=== PATIENT | male | born 1950 | race Caucasian/White ===

== ENCOUNTER 2021-12-30 07:55 | Inpatient (IN) ==
[2021-12-22 12:34] LABS: Basophils % 0.6 % (0.0-0.8); Eosinophils # 0.1 10*3/uL (0.0-0.87); Hematocrit 39.6 VOL% (42.0-52.0); Hemoglobin 13.4 GM/DL (14.0-18.0); Immature Granulocytes % 0.2 %; Immature Granulocytes Absolute 0.01 #; Lymphocytes # 0.9 10*3/uL (1.4-4.0); Lymphocytes % 17.8 % (21.2-54.2); Mean Corpuscular HGB Conc 33.8 GM/DL (32-36); Mean Corpuscular Volume 89.4 FL (87-102); Mean Platelet Volume 10.5 FL (9.6-12.0); Monocytes # 0.5 10*3/uL (0.11-0.8); Monocytes % 10.4 % (1.7-12.7); Platelet Count 269 T/CUMM (130-400); Red Blood Count 4.43 MC/CUMM (3.8-5.5); Red Cell Distribution Width 12.9 % (9.3-17.3); White Blood Count 4.9 T/CUMM (4-12)
[2021-12-22 12:47] LABS: Albumin 3.8 G/DL (3.4-5.0); Bilirubin,Total 0.6 MG/DL (0.20-1.00); Calcium 9.1 MG/DL (8.5-10.1); Osmolality,Calculated 278.4 MOS/KG (273-304); Potassium 4.2 MMOL/L (3.5-5.1); Total Protein 6.7 G/DL (6.4-8.2)
[2021-12-22 12:48] LABS: INR 0.9; PT Patient Result 10.3 SECS (10.1-12.1)
[~2021-12-30 07:55] MED LIST: cefTRIAXone 1,000 MG in SODIUM CHLORIDE 0.9% 100 ML IV ONE
[2021-12-30] MEDS ORDERED: FAMOTIDINE 20 MG TABLET PO ONE (08:28)
[2021-12-30] MEDS ORDERED: DIAZEPAM 5 MG TABLET PO ONE (08:28)
[2021-12-30] MEDS ORDERED: cefTRIAXone 1,000 MG VIAL ONE (09:03)
[2021-12-30] MEDS: LACTATED RINGERS 1,000 ML IV SCH ×2 (09:10→13:55)
[2021-12-30] MEDS ORDERED: ONDANSETRON 4 MG/2 ML VIAL ONE (15:49)
[2021-12-30] MEDS ORDERED: MIDAZOLAM 2 MG/2 ML VIAL ONE (15:49)
[2021-12-30] MEDS ORDERED: propofoL 200 MG/20 ML VIAL IV ONE (15:49)
[2021-12-30] MEDS ORDERED: fentaNYL 100 MCG/2 ML VIAL ONE (15:49)
[2021-12-30] MEDS ORDERED: LIDOCAINE 2% 5 ML VIAL ONE (15:49)
[2021-12-30] MEDS ORDERED: SEVOFLURANE 1 UNIT/15 MINUTE INH ONE (15:49)
[2021-12-30] MEDS ORDERED: ROCURONIUM 50 MG/5 ML VIAL IV ONE (15:49)
[2021-12-30] MEDS ORDERED: ROPIVACAINE 0.5% 30 ML VIAL ONE (15:52)
[2021-12-30] MEDS ORDERED: ePHEDrine 50 MG/ML VIAL ONE (16:36)
[2021-12-30] MEDS ORDERED: SUGAMMADEX 200 MG/2 ML VIAL IV ONE (17:03)
[2021-12-30] MEDS ORDERED: SIMETHICONE CHEW 125 MG TABLET PO PRN (17:12)
[2021-12-30] MEDS ORDERED: ONDANSETRON 4 MG/2 ML VIAL IV PRN (17:12)
[2021-12-30] MEDS ORDERED: diphenhydrAMINE 50 MG/1 ML VIAL IV PRN (17:12)
[2021-12-30] MEDS ORDERED: PROMETHAZINE 25 MG/1 ML VIAL IM PRN (17:12)
[2021-12-30 17:53] LABS: Basophils # 0.1 10*3/uL (0.0-0.2); Basophils % 0.8 % (0.0-0.8); Eosinophils # 0.2 10*3/uL (0.0-0.87); Eosinophils % 3.7 % (0.00-10.9); Hematocrit 38.7 VOL% (42.0-52.0); Hemoglobin 13.2 GM/DL (14.0-18.0); Immature Granulocytes % 0.2 %; Immature Granulocytes Absolute 0.01 #; Lymphocytes # 1.1 10*3/uL (1.4-4.0); Lymphocytes % 16.6 % (21.2-54.2); Mean Corpuscular HGB Conc 34.1 GM/DL (32-36); Mean Corpuscular Volume 92.1 FL (87-102); Mean Platelet Volume 10.1 FL (9.6-12.0); Monocytes # 0.7 10*3/uL (0.11-0.8); Monocytes % 10.2 % (1.7-12.7); Neutrophils % 68.5 % (38.7-73.9); Platelet Count 197 T/CUMM (130-400); Red Cell Distribution Width 13.1 % (9.3-17.3); White Blood Count 6.5 T/CUMM (4-12)
[2021-12-30] MEDS ORDERED: hydrALAZINE 20 MG/1 ML VIAL IV ONE (18:00)
[2021-12-30] MEDS ORDERED: MEPERIDINE 25 MG/1 ML VIAL IV PRN (18:01)
[2021-12-30] MEDS ORDERED: hydrALAZINE 20 MG/1 ML VIAL ONE (18:03)
[2021-12-30 18:06] LABS: Calcium 8.7 MG/DL (8.5-10.1); Osmolality,Calculated 280.3 MOS/KG (273-304); Potassium 3.9 MMOL/L (3.5-5.1)
[2021-12-30] MEDS: ACETAMINOPHEN 325 MG TABLET PO SCH ×2 (19:15→23:57)
[2021-12-30] MEDS: SODIUM CHLORIDE 0.9% 1,000 ML IV SCH (19:16)
[2021-12-30] MEDS: DOCUSATE SODIUM 100 MG CAPSULE PO SCH (20:29)
[2021-12-30] MEDS: TAMSULOSIN 0.4 MG CAPSULE PO SCH (20:30)
[2021-12-30] MEDS: HYDROmorphone 1 MG/1 ML SYRINGE IV PRN (22:44)
[2021-12-31] MEDS: SODIUM CHLORIDE 0.9% 1,000 ML IV SCH ×4 (01:23→17:37)
[2021-12-31] MEDS: ACETAMINOPHEN 325 MG TABLET PO SCH ×3 (05:17→17:26)
[2021-12-31 05:25] LABS: Basophils % 0.6 % (0.0-0.8); Eosinophils # 0.1 10*3/uL (0.0-0.87); Eosinophils % 1.7 % (0.00-10.9); Hematocrit 36.9 VOL% (42.0-52.0); Hemoglobin 12.2 GM/DL (14.0-18.0); Immature Granulocytes % 0.3 %; Immature Granulocytes Absolute 0.02 #; Lymphocytes % 13.9 % (21.2-54.2); Mean Corpuscular HGB Conc 33.1 GM/DL (32-36); Mean Corpuscular Volume 91.1 FL (87-102); Mean Platelet Volume 9.8 FL (9.6-12.0); Monocytes # 0.8 10*3/uL (0.11-0.8); Neutrophils % 72.5 % (38.7-73.9); Platelet Count 258 T/CUMM (130-400); Red Blood Count 4.05 MC/CUMM (3.8-5.5); Red Cell Distribution Width 13.2 % (9.3-17.3); White Blood Count 7.3 T/CUMM (4-12)
[2021-12-31 05:48] LABS: Calcium 8.9 MG/DL (8.5-10.1); Osmolality,Calculated 280.3 MOS/KG (273-304); Potassium 3.7 MMOL/L (3.5-5.1)
[2021-12-31] MEDS: FINASTERIDE 5 MG TABLET PO SCH (08:51)
[2021-12-31] MEDS: TAMSULOSIN 0.4 MG CAPSULE PO SCH ×2 (08:51→20:28)
[2021-12-31] MEDS: DOCUSATE SODIUM 100 MG CAPSULE PO SCH ×2 (08:51→20:28)
[2021-12-31] MEDS: amLODIPine 5 MG TABLET PO SCH (08:51)
[2021-12-31] MEDS: cefTRIAXone 1,000 MG in SODIUM CHLORIDE 0.9% 100 ML IV SCH (08:52)
[2021-12-31] MEDS: HYDROmorphone 1 MG/1 ML SYRINGE IV PRN ×2 (15:44→19:40)
[2021-12-31] MEDS: oxyCODONE/ACETAMINOPHEN 5-325 MG TABLET PO PRN ×2 (17:26→21:55)
[2022-01-01] MEDS: HYDROmorphone 1 MG/1 ML SYRINGE IV PRN ×4 (01:23→20:32)
[2022-01-01] MEDS: SODIUM CHLORIDE 0.9% 1,000 ML IV SCH ×4 (03:18→21:54)
[2022-01-01 05:02] LABS: Basophils % 0.2 % (0.0-0.8); Eosinophils # 0.1 10*3/uL (0.0-0.87); Eosinophils % 0.6 % (0.00-10.9); Hematocrit 34.5 VOL% (42.0-52.0); Hemoglobin 11.7 GM/DL (14.0-18.0); Immature Granulocytes % 0.3 %; Immature Granulocytes Absolute 0.03 #; Lymphocytes # 0.7 10*3/uL (1.4-4.0); Mean Corpuscular HGB Conc 33.9 GM/DL (32-36); Mean Corpuscular Volume 91.8 FL (87-102); Mean Platelet Volume 10.1 FL (9.6-12.0); Monocytes # 0.9 10*3/uL (0.11-0.8); Monocytes % 9.4 % (1.7-12.7); Neutrophils % 82.5 % (38.7-73.9); Platelet Count 247 T/CUMM (130-400); Red Blood Count 3.76 MC/CUMM (3.8-5.5); Red Cell Distribution Width 13.2 % (9.3-17.3); White Blood Count 9.4 T/CUMM (4-12)
[2022-01-01] MEDS: ACETAMINOPHEN 325 MG TABLET PO SCH ×5 (06:15→23:28)
[2022-01-01] MEDS: DOCUSATE SODIUM 100 MG CAPSULE PO SCH ×2 (08:26→20:33)
[2022-01-01] MEDS: amLODIPine 5 MG TABLET PO SCH ×2 (08:26→14:51)
[2022-01-01] MEDS: TAMSULOSIN 0.4 MG CAPSULE PO SCH ×3 (08:26→20:33)
[2022-01-01] MEDS: FINASTERIDE 5 MG TABLET PO SCH ×2 (08:27→14:51)
[2022-01-01] MEDS: cefTRIAXone 1,000 MG in SODIUM CHLORIDE 0.9% 100 ML IV SCH (08:28)
[2022-01-01] MEDS ORDERED: cefTRIAXone 1,000 MG in SODIUM CHLORIDE 0.9% 100 ML IV ONE (13:06)
[2022-01-02 04:55] LABS: Basophils % 0.2 % (0.0-0.8); Eosinophils # 0.1 10*3/uL (0.0-0.87); Eosinophils % 1.3 % (0.00-10.9); Hematocrit 34.2 VOL% (42.0-52.0); Hemoglobin 11.4 GM/DL (14.0-18.0); Immature Granulocytes % 0.6 %; Immature Granulocytes Absolute 0.05 #; Lymphocytes # 0.8 10*3/uL (1.4-4.0); Lymphocytes % 9.4 % (21.2-54.2); Mean Corpuscular HGB Conc 33.3 GM/DL (32-36); Mean Corpuscular Volume 91.7 FL (87-102); Mean Platelet Volume 10.1 FL (9.6-12.0); Monocytes # 0.8 10*3/uL (0.11-0.8); Monocytes % 9.7 % (1.7-12.7); Neutrophils % 78.8 % (38.7-73.9); Platelet Count 249 T/CUMM (130-400); Red Blood Count 3.73 MC/CUMM (3.8-5.5); Red Cell Distribution Width 13.3 % (9.3-17.3); White Blood Count 8.3 T/CUMM (4-12)
[2022-01-02] MEDS: SODIUM CHLORIDE 0.9% 1,000 ML IV SCH ×2 (05:03→11:44)
[2022-01-02] MEDS: ACETAMINOPHEN 325 MG TABLET PO SCH ×3 (05:04→16:32)
[2022-01-02] MEDS: HYDROmorphone 1 MG/1 ML SYRINGE IV PRN (07:35)
[2022-01-02] MEDS: TAMSULOSIN 0.4 MG CAPSULE PO SCH (08:31)
[2022-01-02] MEDS: FINASTERIDE 5 MG TABLET PO SCH (08:31)
[2022-01-02] MEDS: amLODIPine 5 MG TABLET PO SCH (08:31)
[2022-01-02] MEDS: cefTRIAXone 1,000 MG in SODIUM CHLORIDE 0.9% 100 ML IV SCH (08:32)
[2022-01-02] MEDS: DOCUSATE SODIUM 100 MG CAPSULE PO SCH (08:32)
[2022-01-02] MEDS ORDERED: MIDAZOLAM 2 MG/2 ML VIAL ONE (09:19)
[2022-01-02] MEDS ORDERED: fentaNYL 100 MCG/2 ML VIAL ONE (09:19)
[2022-01-02] MEDS ORDERED: LACTATED RINGERS 1,000 ML IV ONE (10:21)
[2022-01-02] MEDS ORDERED: propofoL 200 MG/20 ML VIAL IV ONE (10:21)
[2022-01-02] MEDS ORDERED: LIDOCAINE 2% 5 ML VIAL ONE (10:21)
[2022-01-02] MEDS ORDERED: SEVOFLURANE 1 UNIT/15 MINUTE INH ONE (10:21)
[2022-01-02] MEDS ORDERED: ONDANSETRON 4 MG/2 ML VIAL ONE (10:21)
[2022-01-02 16:06] VITALS: BP 171/92
[2022-01-05 23:26] LABS: Stone Source Kidney
== END 2022-01-02 18:05 | disposition home or self-care (01) | DRG 661 ==
LOC: N.OR 07:55 → N.SDSINP 07:55 → N.3E 18:42
PROVIDERS: ADMIT Surgery; ATTEND Surgery